=== PATIENT | female | born 1970 | race Caucasian/White ===

== ENCOUNTER 2016-07-14 11:17 | Observation (INO) | payer BC ==
[~2016-07-14] VITALS: Ht 167.6 cm; Wt 94.0 kg
[~2016-07-14 11:17] MED LIST changes: -ASPI-391 PO; -DOXY1TAB6 PO; -METR500T PO
[2016-07-14] MEDS ORDERED: ASPI-391 PO (11:51)
--- NOTE | 2016-07-14 12:11 | Medical Consult ---
Consultation Date of Consultation: Jul 14, 2016. Attending Physician: Parris Montiel Reason for Consultation: Vaginal cuff dehiscence History of Present Illness 46yo s/p robotic TLH/salpingectomy/cystoscopy with Dr. Trevino 6 weeks prior for fibroids and menorrhagia. Non compliant with post op visits. Had intercourse Ashvin night and suffered acute onset of pelvic pain and pressure accompanied by a [id number] watery discharge. She did not have bleeding and despite the recommendation of her sexual partner did not want to present to ER at that time. She instead called the office where she was seen today, at which time Dr. Trevino examined her. He felt he was seeing the ovary sitting at the top of the opened vaginal cuff. The patient denies fevers or chills, but believes the watery discharge has had a foul odor through the weekend. She has not required medication for pain and states she did not realize anything serious was wrong until her examination today. Social History Smoking Status: Current Every Day Smoker Alcohol Use: socially Drug Use: none Allergies Coded Allergies: No Known Allergies (Unverified , 07/14/16) Home Medications [id number] multivitamins. Review of Systems Constitutional: No chills, No fever Respiratory: No cough Cardiovascular: No chest pain Abdomen: No nausea, No vomiting Musculoskeletal: No problem reported Genitourinary - Female: + vaginal discharge (clear, [id number]), No dysuria, No hematuria, No urinary frequency, No urinary urgency, No vaginal bleeding Physical Exam Date Time Temp Pulse Resp B/P Pulse Ox O2 Delivery O2 Flow Rate FiO2 07/14/16 11:20 36.5 82 16 143/84 98 Room Air General Appearance: WD/WN, no apparent distress Head: normocephalic ENT: hearing grossly normal Neck: supple Respiratory/Chest: no respiratory distress, no accessory muscle use Cardiovascular: regular rate, rhythm Abdomen/GI: non tender, soft, + pertinent finding (nontender, no rebound or guarding) Genitourinary - Female: external genitalia normal, + pertinent finding ( vaginal cuff open with few sutures remaining visible at L angle, but the majority of cuff opened to 2cm wide, with ovary seated in the top of the vagina like a plug. Serous fluid leakage around the ovary is noted, but no active bleeding. No attempt made to touch or dislodge ovary. SSE with visualization only, no bimanual or manipulation perfomed.) Neurologic/Psych: normal mood/affect, oriented x 3 Skin: normal color, no rash Laboratory Results pending CBC, PRP Assessment & Plan Delilah was informed that she has a vaginal cuff dehiscence that is allowing peritoneal fluid to escape through the vagina and which requires prompt closure. She is fortunate that at the moment her ovary is blocking the vaginal entrance and there has been no bleeding or prolapse of abdominal contents. She was also advised that I recommend we begin a course of oral antibiotics as an outpatient to reduce the risk of peritonitis caused by the introduction of vaginal bacteria to the peritoneal space during intercourse and over the past 4 days. She was counseled that following this repair it is crucial that she adhere to recommended follow up. This is to include 2 weeks off of work, at least 6 weeks off of heavy lifting such as she was already doing at the gym, and at least 12 weeks off of intercourse. She was further counseled that smoking may contribute to a reduce ability to heal.
[2016-07-14] MEDS ORDERED: LACTATED RINGER'S 1000ML 1,000 ML IV SCH ×2 (12:12→19:30)
[2016-07-14] MEDS ORDERED: DOXY1TAB6 PO (12:14)
[2016-07-14] MEDS ORDERED: METR500T PO (12:14)
--- NOTE | 2016-07-14 12:18 | Discharge Instructions ---
Discharge Instructions Admission Reason for Admission: Torn Vagina Discharge Discharge Diagnosis / Problem: Vaginal cuff Dehiscence (opening) Discharge Goals Goal(s): Routine recovery after surgery Activity Recommendations Activity Limitations: per Instructions/Follow-up section Lifting Limitations: no more than 5 pounds Exercise/Sports Limitations: until after follow-up appointment May Resume Sexual Activity: after follow-up appointment Shower/Bathe: may shower/bathe in 3 days Driving or Machine Use: resume 1 day after discharge . Instructions / Follow-Up Instructions / Follow-Up You need to stay off work for [address] Trevino in the office at six weeks after this repair. Call to schedule. DO NOT resume weightlifting or concentrated activity until after this 6-week checkup. [place] will be off limits for at least 12 weeks after repair. Do NOT place anything in the vagina, including but not limited to tampons or douching, until approved by Dr. Trevino. Current Hospital Diet Patient's current hospital diet: Discharge Diet Recommended Diet: Regular Diet Pending Studies Studies pending at discharge: no Medical Emergencies . Who to Call and When: Medical Emergencies: If at any time you feel your situation is an emergency, please call 911 immediately. . Non-Emergent Contact Non-Emergency issues call your: Primary Care Provider . . "Provider Documentation" section prepared by Parris Montiel. VTE Core Measure Inpt VTE Proph given/why not?: Treatment not indicated
[2016-07-14 12:23] LABS: BASO % 0.2 %; BASO ABS # 0.03 K/uL (0-0.2); COMPLETE YES; EOS % 1.4 %; HEMATOCRIT 43.6 % (37-47); IG% 0.3 %; LYMPH % 13.6 %; LYMPH ABS # 1.77 K/uL (1.2-3.4); MEAN CELL VOLUME 89.2 fL (80-100); MEAN CORPUSCULAR HEMOGLOBIN 31.5 pg (25-34); MEAN CORPUSCULAR HGB CONC 35.3 g/dl (32-36); MEAN PLATELET VOLUME 10.7 fL (7.4-10.4); MONO % 5.7 %; NEUT % 78.8 %; PLATELET COUNT 245 K/uL (130-400); RED BLOOD COUNT 4.89 M/uL (4.2-5.4); WHITE BLOOD COUNT 12.99 K/uL (4.8-10.8)
[2016-07-14 12:32] LABS: BUN/CREATININE RATIO 9.7 (10-20); CREATININE 0.77 mg/dl (0.60-1.20); POTASSIUM 3.7 mmol/L (3.5-5.1)
[2016-07-14] MEDS ORDERED: CEFAZOLIN IV 2,000 MG in DEXTROSE 5% 50ML 50 ML IV SCH (14:45)
[2016-07-14] MEDS ORDERED: LACTATED RINGER'S 1000ML 1,000 ML IV PRN (15:44)
[2016-07-14] MEDS ORDERED: FENTANYL CITRATE INJ 50 MCG/1 ML 2 ML VIAL IV PRN (15:45)
[2016-07-14] MEDS ORDERED: MoRPHine SULFATE 4 MG/ML 1 ML CARP\\VIAL IV PRN (15:45)
[2016-07-14] MEDS ORDERED: ONDANSETRON INJ 2 MG/ML 2 ML VIAL IV PRN ×2 (15:45→17:45)
--- NOTE | 2016-07-14 17:43 | [facility] Post Operative Brief Note ---
Immediate Operative Summary Operative Date Jul 14, 2016. Pre-Operative Diagnosis Vaginal cuff dehiscence Post-Operative Diagnosis same Procedure(s) Performed Repair of vaginal cuff dehiscence, and diagnostic laparoscopy Surgeon Dr Montiel [employer] Physical Therapist Surgeon(s) Dr Trevino Estimated Blood Loss 20ml Findings Cuff dehiscence Specimens none Drains Bailey Anesthesia General Complication(s) None Disposition Recovery Room / PACU
[2016-07-14] MEDS ORDERED: PROMETHAZINE HCL INJ 12.5 MG in SODIUM CHLORIDE 0.9% 50ML 50 ML IV PRN (17:45)
[2016-07-14] MEDS ORDERED: ACETAMINOPHEN 325 MG TAB PO PRN (17:45)
[2016-07-14] MEDS ORDERED: KETOROLAC TROMETHAMINE 30 MG/ML VIAL IV. PRN (17:45)
[2016-07-14] MEDS ORDERED: PROMETHAZINE HCL INJ 25 MG in SODIUM CHLORIDE 0.9% 50ML 50 ML IV PRN (17:45)
[2016-07-14] MEDS ORDERED: MEPERIDINE HCL 50 MG/ML CARP IV PRN (17:45)
[2016-07-14] MEDS ORDERED: ZOLPIDEM TARTRATE 5 MG TAB PO PRN (17:45)
[2016-07-14] MEDS ORDERED: OXYCODONE/ACETAMINOPHEN 5-325 TAB PO PRN (17:45)
[2016-07-14] MEDS ORDERED: BISACODYL 10 MG SUPP PR PRN (17:45)
[2016-07-14] MEDS ORDERED: MEPERIDINE HCL 75 MG/ML CARP IV PRN (17:45)
[2016-07-14] MEDS ORDERED: MAGNESIUM HYDROXIDE SUSP 30 ML UDC PO PRN (17:45)
[2016-07-14] MEDS ORDERED: SIMETHICONE 80 MG CHEW PO PRN (17:45)
--- NOTE | 2016-07-14 18:37 | Anesthesiology Progress Note ---
Anesthesia Post Op Note Date & Time Jul 14, 2016 at 18:37 Vital Signs Pain Intensity: 0 Vital Signs Past 12 Hours Date Time Temp Pulse Resp B/P Pulse Ox O2 Delivery O2 Flow Rate FiO2 07/14/16 18:20 36.9 64 16 118/64 95 Room Air 07/14/16 18:10 70 16 124/79 96 Room Air 07/14/16 18:00 63 16 120/87 100 Mask 10 07/14/16 17:50 61 16 133/80 100 Mask 10 07/14/16 17:43 36.3 58 16 140/87 100 Mask 10 07/14/16 15:19 36.9 64 18 92/67 96 Room Air 07/14/16 15:08 70 18 94/56 97 07/14/16 14:40 70 18 94/56 97 Room Air 07/14/16 12:51 75 18 129/61 97 Room Air 07/14/16 11:20 36.5 82 16 143/84 98 Room Air Notes Mental Status: alert / awake / arousable, participated in evaluation Pt Amnestic to Procedure: Yes Nausea / Vomiting: adequately controlled Pain: adequately controlled Airway Patency, RR, SpO2: stable & adequate BP & HR: stable & adequate Hydration State: stable & adequate Anesthetic Complications: no major complications apparent Pt did well.
[2016-07-14 18:40] VITALS: BP 117/76; PULSE 66; TEMP 36.4; O2SAT 95
[2016-07-14 19:20] VITALS: BP 106/73; PULSE 65; TEMP 37; O2SAT 95
[2016-07-14 19:30] VITALS: O2SAT 95; Ht 167.6 cm; Wt 94.0 kg
[2016-07-14] MEDS: IBUPROFEN 600 MG TAB PO PRN ×2 (19:32→23:17)
[2016-07-14] MEDS: OXYCODONE/ACETAMINOPHEN 5-325 TAB PO PRN ×2 (19:33→23:18)
[2016-07-14 20:00] VITALS: BP 103/68; PULSE 73; TEMP 36.9; O2SAT 93
[2016-07-14] MEDS: METRONIDAZOLE / NSS 500 MG in PREMIXED NSS 100 ML IV SCH (20:06)
[2016-07-14 21:00] VITALS: BP 105/68; PULSE 66; TEMP 37.2; O2SAT 95
[2016-07-14] MEDS ORDERED: DOCUSATE SODIUM 100 MG CAP PO SCH (21:00)
[2016-07-14] MEDS ORDERED: IV FLUIDS COMPLETED PRN (21:30)
[2016-07-14] MEDS: CEFAZOLIN IV 2,000 MG in DEXTROSE 5% 50ML 50 ML IV SCH (22:09)
[2016-07-14 23:30] VITALS: BP 92/59; PULSE 52; TEMP 36.7; O2SAT 95
[2016-07-15 03:45] VITALS: BP 98/65; PULSE 54; TEMP 36.8
[2016-07-15] MEDS: METRONIDAZOLE / NSS 500 MG in PREMIXED NSS 100 ML IV SCH (03:46)
[2016-07-15] MEDS: CEFAZOLIN IV 2,000 MG in DEXTROSE 5% 50ML 50 ML IV SCH (05:45)
--- NOTE | 2016-07-15 07:05 | OPERATIVE REPORT ---
DATE OF OPERATION: 07/14/2016 PREOPERATIVE DIAGNOSIS: Vaginal cuff dehiscence. POSTOPERATIVE DIAGNOSIS: Vaginal cuff dehiscence. PROCEDURE: Vaginal repair of vaginal cuff dehiscence and diagnostic laparoscopy. SURGEON: Dr. Trevino. B[employer]K PLANT AGENT: Dr. Montiel. ANESTHETIC: General. COMPLICATIONS: None. ESTIMATED BLOOD LOSS: 20 mL. SPECIMENS: None. DRAINS: Bailey catheter. DISPOSITION: Recovery room. PROCEDURE IN DETAIL: Delilah was given a general anesthetic, prepped and draped in dorsal lithotomy position in [facility]. The procedure was initially started by Dr. Montiel and then I was called over to assist early on in the procedure. Initially the exam revealed cuff dehiscence as noted in the clinical notes in the office. The patient had not followed postop instructions, in fact had not even had a postop visit. She had resumed weightlifting and vaginal intercourse earlier than recommended and then noticed tearing and pain sensation 4 days earlier. She was assessed in the office and the cuff dehiscence was noted. While under general anesthetic, there was a clear full cuff dehiscence. There was no passageway into the peritoneal cavity but there did seem to be tissue behind this. When I examined this, I felt this looked likely to be somewhat inflamed omentum. It did not appear as though. After generous irrigation and she had been prepped as well on the vagina, we closed the cuff with vaginal 0 Vicryl, needles, pop-offs simple interrupted. This was approximately 6 total sutures to close. Stitches we. I viewed the cuff and it was well reapproximated. It should be noted that tissue seemed reasonable and had good vascularity. At this stage, the patient already had a Bailey catheter. I felt it would be augustin to perform laparoscopy, simply to assess from above whether there was any evidence of abscess or abnormality on top of the vault. Gloves were changed. The patient was reprepped and draped. We scrubbed and put new gown and gloves on. The supraumbilical incision from the prior robotic laparoscopy was used and with open John technique, we cut down through subcutaneous fat to the fascia, splitting the rectus muscles and entering the peritoneal cavity. I placed a blunt-tipped John trocar and then balloon inflated with air and then CO2 gas to insufflate the abdomen. FINDINGS: Upper abdomen normal, no sign of visceral organ injury. Deep Trendelenburg was then placed. Using two 5 mm ports, one in the left, one in the right to allow probes and suction irrigators, there was omentum tied up to the pelvis. There was no evidence of abscess at all. I probed this fairly thoroughly and was actually able to see the patient's right side of the vaginal cuff. The omentum seemed to be what was pressing against the vagina. I conferred with Dr. Montiel and we discussed risks and benefits of fully utilizing away the adhesions of the omentum in this inflammatory state. As we attempted to release the adhesions, it was somewhat increased bleeding. Bleeding soon subsided but we decided together that it would not be augustin to fully dissect this away, that in fact the omentum may provide some support as well in the area to the closure and certain that further dissection carried risk. Again ruling out abscess at this stage, we generously irrigated, suctioned and then removed our ports under direct visualization, allowed the gas to escape. All incisions irrigated and then closed with 0 Vicryl, fascia with several interrupted 0 Vicryl, fascia in the umbilical incision. The subcutaneous fat closed as well, 4-0 subcuticular Monocryl closures of all the incisions and Dermabond. At the end of procedure, I did recheck the vagina. Cuff closure was excellent and there was no bleeding. The patient was sent to recovery room in stable condition. I attest to the content of the Intraoperative Record and any orders documented therein. Any exceptions are noted below. JENIFFER
[2016-07-15 07:20] VITALS: BP 102/68; PULSE 55; TEMP 37; O2SAT 97
--- NOTE | 2016-07-15 07:28 | Progress Note ---
Subjective Date of Service: Jul 15, 2016. Subjective Pt evaluation today including: conversation w/ patient, physical exam Pain: minimal PO Intake: regular diet Voiding: no voiding problems Review of Systems Constitutional: No fever Respiratory: No cough Cardiac: No chest pain Abdomen: No nausea, No vomiting Female : No abnormal vaginal bleeding, No dysuria, No vaginal discharge All Other Systems: Reviewed and Negative Objective Vital Signs Date Time Temp Pulse Resp B/P Pulse Ox O2 Delivery O2 Flow Rate FiO2 07/15/16 03:45 36.8 54 18 98/65 07/14/16 23:30 36.7 52 16 92/59 95 Room Air 07/14/16 23:30 95 Room Air 07/14/16 21:00 37.2 66 18 105/68 95 Room Air 07/14/16 20:00 36.9 73 16 103/68 93 Room Air 07/14/16 19:30 95 Room Air 07/14/16 19:20 37.0 65 18 106/73 95 Room Air 07/14/16 18:40 36.4 66 16 117/76 95 Room Air 07/14/16 18:20 36.9 64 16 118/64 95 Room Air 07/14/16 18:10 70 16 124/79 96 Room Air 07/14/16 18:00 63 16 120/87 100 Mask 10 07/14/16 17:50 61 16 133/80 100 Mask 10 07/14/16 17:43 36.3 58 16 140/87 100 Mask 10 07/14/16 15:19 36.9 64 18 92/67 96 Room Air 07/14/16 15:08 70 18 94/56 97 07/14/16 14:40 70 18 94/56 97 Room Air 07/14/16 12:51 75 18 129/61 97 Room Air 07/14/16 11:20 36.5 82 16 143/84 98 Room Air Physical Exam General Appearance: no apparent distress ENT: hearing grossly normal Respiratory/Chest: chest non-tender, no respiratory distress, no accessory muscle use Cardiovascular: no edema Abdomen: non tender, soft, + pertinent finding (incisions c/d/i) Extremities: + pertinent finding (SCD's in place) Neurologic/Psychiatric: normal mood/affect, oriented x 3 Skin: no rash Laboratory Results Last 24 Hours Test 07/14/16 11:45 White Blood Count 12.99 K/uL Red Blood Count 4.89 M/uL Hemoglobin 15.4 g/dL Hematocrit 43.6 % Mean Corpuscular Volume 89.2 fL Mean Corpuscular Hemoglobin 31.5 pg Mean Corpuscular Hemoglobin Concent 35.3 g/dl Platelet Count 245 K/uL Mean Platelet Volume 10.7 fL Neutrophils (%) (Auto) 78.8 % Lymphocytes (%) (Auto) 13.6 % Monocytes (%) (Auto) 5.7 % Eosinophils (%) (Auto) 1.4 % Basophils (%) (Auto) 0.2 % Neutrophils # (Auto) 10.23 K/uL Lymphocytes # (Auto) 1.77 K/uL Monocytes # (Auto) 0.74 K/uL Eosinophils # (Auto) 0.18 K/uL Basophils # (Auto) 0.03 K/uL RDW Standard Deviation 46.3 fL RDW Coefficient of Variation 14.1 % Immature Granulocyte % (Auto) 0.3 % Immature Granulocyte # (Auto) 0.04 K/uL Sodium Level 141 mmol/L Potassium Level 3.7 mmol/L Chloride Level 109 mmol/L Carbon Dioxide Level 23 mmol/L Anion Gap 9.0 mmol/L Blood Urea Nitrogen 7 mg/dl Creatinine 0.77 mg/dl Est Creatinine Clear Calc Drug Dose 107.7 ml/min Estimated GFR () 108.8 Estimated GFR (Non- 93.9 BUN/Creatinine Ratio 9.7 Random Glucose 97 mg/dl Calcium Level 9.0 mg/dl Assessment and Plan POD#1 vaginal cuff dehiscence repair and diagnostic laparoscopy. Pain minimal, no vaginal bleeding or discharge today. Will discharge to home. Patient advised to follow up in office with Dr. Trevino in two weeks as per his recommendation. Take antibiotics as prescribed after discharge home and use all doses until finished. Maintain pelvic rest and avoid heavy lifting.
[2016-07-15 07:30] VITALS: BP 102/68; PULSE 55; TEMP 37; O2SAT 97
--- NOTE | 2016-07-20 11:12 | DISCHARGE SUMMARY ---
Delilah was admitted for observation on 07/14/2016. At that time Dr. Montiel was translation director and I assessed the patient in the office. She was sent over for assessment of a vaginal cuff dehiscence. She was operated to fix the cuff dehiscence which included laparoscopy and vaginal cuff closure. This was on 07/14/2016. Operative note dictated. Course in hospital was uncomplicated. By postop day #1, which was just the next morning, she was ambulating, passing flatus, tolerating an oral diet and pain medication, had no extremity pain. PHYSICAL EXAM: VITAL SIGNS: Stable. She was afebrile. EXTREMITY: Negative. INCISIONS: Clean, dry, and intact. She had minimal vaginal bleeding. IMPRESSION AND PLAN: Postop day #1 from vaginal cuff dehiscence. Was advised strongly to avoid intercourse and heavy lifting. Note: The patient had resumed heavy lifting, weight lifting, and intercourse prior to recommended time so this was thoroughly reviewed with her with Dr. Montiel on the morning of 07/15/2016. She was told to followup in the office with Dr. Trevino in 2 weeks.
== END 2016-07-15 08:45 | disposition home or self-care (01) ==
LOC: ENRESERVDT → ENRESERVTM → C.EDB 11:19 → C.MS4N 17:38
PROVIDERS: ADMIT Obstetrics & Gynecology; ATTEND Obstetrics & Gynecology
DX: T81.31XA Disruption of external operation (surgical) wound, not elsewhere classified, initial encounter (principal); Y83.6 Removal of other organ (partial) (total) as the cause of abnormal reaction of the patient, or of later complication, without mention of misadventure at the time of the procedure; K66.0 Peritoneal adhesions (postprocedural) (postinfection); F17.200 Nicotine dependence, unspecified, uncomplicated

== ENCOUNTER → 2016-07-14 | Outpatient (CLI) | payer BC ==
[~2016-07-14] MED LIST: ASPI-391 PO; CYAN100073 PO; DOXY1TAB6 PO; METR500T PO; MTR600X PO; MULT-506 PO; OXYC-57 PO
[2016-07-14 14:15] LABS: MANUAL MICROSCOPIC REQUIRED? NO; REVIEW REQ? NO; URINE APPEARANCE CLEAR (CLEAR); URINE BILIRUBIN NEG (NEG); URINE COLOR YELLOW; URINE EPITHELIAL CELL AUTO 20-30 /lpf (0-5); URINE NITRITE NEG (NEG); URINE SPECIFIC GRAVITY 1.005 (1.000-1.030); UROBILINOGEN NEG (NEG); ZZUR CULT IF INDIC CLEAN CATCH YES
== END | disposition home or self-care (01) ==
LOC: C.LABSPEC 13:36
PROVIDERS: ATTEND Obstetrics & Gynecology
DX: R10.2 Pelvic and perineal pain (principal)